=== PATIENT | female | born 1950 | race Caucasian/White ===

== ENCOUNTER 2017-04-24 05:41 | Inpatient (IN) | payer MEDICARE, OTHER ==
[2017-04-24] MEDS ORDERED: ceFAZolin SODIUM 1 GM VIAL IV PRN (06:00)
[2017-04-24] MEDS ORDERED: MORPHINE SULFATE 15 MG TABLET.SA PO PRN (06:00)
[2017-04-24] MEDS: RINGER'S SOLUTION,LACTATED 1,000 ML IV PRN ×2 (07:28→07:30)
[2017-04-24] MEDS ORDERED: RINGER'S SOLUTION,LACTATED 1,000 ML IV ONE ×2 (08:25→09:21)
[2017-04-24] MEDS: ROPIVACAINE HCL/PF 100 MG, EPINEPHrine 0.2 MG, KETOROLAC TROMETHAMINE 30 MG in NORMAL S... IJ PRN ×2 (08:31→09:20)
[2017-04-24] MEDS: TRANEXAMIC ACID 1,000 MG in NORMAL SALINE 100 ML IV PRN ×2 (08:32→09:22)
[2017-04-24] MEDS ORDERED: MAGNESIUM HYDROXIDE 30 ML UDC PO PRN (09:46)
[2017-04-24] MEDS ORDERED: ZOLPIDEM TARTRATE 5 MG TABLET PO PRN (09:46)
[2017-04-24] MEDS ORDERED: ACETAMINOPHEN 500 MG TABLET PO PRN (09:46)
[2017-04-24] MEDS ORDERED: HYDROmorphone HCL 1 MG/ML DISP.SYRIN IV PRN (09:46)
[2017-04-24] MEDS ORDERED: diphenhydrAMINE HCL 50 MG/ML VIAL IV PRN (09:46)
[2017-04-24] MEDS ORDERED: MAG HYDROX/ALUMINUM HYD/SIMETH 30 ML UDC PO PRN (09:46)
[2017-04-24] MEDS ORDERED: ONDANSETRON HCL/PF 2 MG/ML VIAL IV PRN (09:46)
[2017-04-24] MEDS ORDERED: PROMETHAZINE HCL 5 MG in DEXTROSE 5 % IN WATER 50 ML IV PRN ×2 (09:46)
--- NOTE | 2017-04-24 09:50 | OR ---
Operative Report - Dictated Report Narrative: Date: 04/24/2017 Preoperative diagnosis: Left Knee degenerative joint disease. Postoperative diagnosis: Left Knee degenerative joint disease. Procedure: Left Total knee arthroplasty. Surgeon: Phi Mcdonough M.D. [place] Welter: Flavio Munson PA-C Anesthesia: Spinal with regional block and local periarticular joint injection. Complications: None Specimens: Bone for disposal. Estimated blood loss: Minimal. Tourniquet time: 84 Minutes at 350 millimeters of mercury. Retained implants: Depuy Attune size 5 narrow left lugged cemented posterior stabilized femoral component. Size 4 fixed-bearing cemented tibial platform. 5 by 7 millimeter posterior stabilized cross-linked tibial insert. 38 millimeter medialized patella button. Indications: Mrs. Robison is a 67-year-old female who had advanced left knee arthrosis. This patient was followed in my clinic for period of time with significant complaints of left knee pain consistent with arthritic changes. She had failed conservative measures including, but not limited to, activity modification, passage of time, medications, and other conservative measures. Patient wished to proceed with surgical treatment. The risks, benefits, and alternatives were discussed in clinic. The risks of , blood clots, bleeding, infection, nerve/tendon blood vessel/ injury, malposition of components, intraoperative fracture, postoperative limited range of motion, persistent pain, failure of components, and need for additional procedures. Patient wished to proceed consent was obtained after answering all questions. Procedure: After marking the correct extremity on the floor, the patient was taken to the operating room. A timeout was performed. IV antibiotics consisting of Ancef were administered prior to the procedure. A regional followed by spinal anesthetic was induced by anesthesia, per my request, on the operative table with all bony prominences well-padded. Lewis catheter was placed, and a bump was placed under the operative side buttock. SCDs and WILMER hose were utilized on the nonoperative leg. A well-padded tourniquet was applied to the operative thigh. The operative leg was then pre-scrubbed with alcohol prepped, and draped in a standard sterile fashion. After exsanguinating the extremity with an Esmarch bandage, the tourniquet was inflated. After marking out the anterior knee for standard incision centered over the patella, the skin was incised and dissected down to the joint retinaculum. The joint retinaculum was marked out as well as the horizontal axis of the patella, and a standard medial parapatellar arthrotomy was then made. The most proximal aspect of the quadriceps tendon and the patella tendon insertion were protected from release. A partial synovectomy was performed as well as a resection of the infrapatellar fat pad. The distal femoral fat pad proximal to the trochlea was also resected using cautery. The soft tissues were elevated off the medial aspect of the proximal tibia using a Ferguson elevator ensuring that we did not transect the medial collateral ligament. Upon initial evaluation range of motion was approximately 0 degrees to 90 degrees of flexion. There were signs of advanced arthrosis in the medial, lateral, and patellofemoral joint spaces. There were large marginal osteophytes which were removed with a rongeur. The knee was hyperflexed and the patella was tucked laterally. Protecting the surrounding soft tissues with Homans, an entry drill was placed down the femoral canal using Whitesides line for guidance into the entry point. The intramedullary femoral alignment usha was utilized in order to cut the distal femur in 5 degrees of valgus resecting 10 millimeters of bone. Next the distal femur was sized to a size 5. A posterior referencing guide was utilized to place the distal femoral cutting block in 3 degrees of external rotation. This was pinned into place. The rotation was confirmed both visually and based on anatomic landmarks. The 4 in 1 cutting jig of the appropriate size was utilized in order to make all bony cuts. The angle wing was used to ensure no notching. Retractors were utilized in order to protect surrounding soft tissues. This cut did not result in any excessive notching. We then cut the box centered over the distal femur. This allowed for resection of the anterior and posterior cruciate ligaments. I then turned my attention to the preparation of the tibia. Using an extra medullary tibial alignment usha, 4 millimeters of bone was resected off the medial articular surface. This was made perpendicular to the mechanical axis of the joint with the alignment usha centered over the ankle mortise. The alignment usha was checked and was noted to be parallel to the mechanical axis, centered over the medial one third of the tibial tubercle, paralleling the anterior surface of the tibia. We then turned our attention to the remaining meniscus and soft tissues. These were removed while protecting the surrounding ligaments and soft tissues. The marginal osteophytes off the anterior, posterior, medial, lateral aspects of the femur and tibia were removed. The tibia was sized out to a size 4. Next the tibia was drilled and punched in an externally rotated position. Next the trial femur and a series of tibial inserts were utilized in order to allow for full extension and maximal flexion. It was found that a 7 millimeter insert gave the best range of motion and stability at multiple flexion points as well as at full extension there was less than 2 mm of gapping both medially and laterally. There is minimal anterior translation with the knee at 90 degrees of flexion and no signs of being able to dislocate the knee. The patella was then prepared. The initial thickness was 22 millimeters. This was reamed down to 12 millimeters parallel to the anterior surface of the patella. It was sized out to a size 38 medialized patella button. This was then drilled and trialed. Without any medial restraint the patella tracked appropriately and did not sublux or dislocate. At this point, it was felt these were the appropriate sized implants, and all trials were removed. The standard periarticular joint injection consisting of ropivacaine, Toradol, and epinephrine were injected into the periarticular joint tissues. The bony surfaces were thoroughly irrigated with a pulsatile- suction saline irrigation device. A bone plug from the prior resected anterior chamfer cut was placed into the drill hole at the distal femur. The bony surfaces were then dried in preparation for placement of the implants. The cement was vacuum mixed per the airline radio operator's instructions. The cement was placed on the dry bony surfaces and posterior aspect of the implants. The implants were impacted into place, removing all extruded cement. At this point anesthesia administered tranexamic acid per protocol intravenously. The knee was placed in extension with axial loading with the trial insert while the cement cured. Once the cement cured, all remaining extruded cement was removed. The knee was placed through a range of motion with the trial insert to ensure appropriate range of motion and stability. Final range of motion was approximately 0 to 110 degrees limited by her soft tissues. The knee was again thoroughly irrigated with pulsatile saline lavage. The final polyethylene insert was then impacted into place ensuring no retained soft tissues. The remaining periarticular joint injection was injected. A medium Hemovac drain was placed exiting superior laterally. The knee was then placed over a triangle and the arthrotomy was closed with interrupted #1 Vicryl after thoroughly irrigating the joint. The deep and subcutaneous tissues were closed with interrupted 0 and 3-0 Vicryl respectively. Skin was closed with a running subcutaneous 3-0 Monocryl and Prineo Dermabond dressing. 4 x 4's, Sof-Rol, and a full leg Gaurav wrap were applied. All sponge, needle, blade, and instrument counts were correct prior to closing the wounds. Postoperative condition: The patient was awoken and transferred to the postanesthesia care unit in stable condition. Plan is to be admitted to the inpatient medical/surgical floor postoperatively for 24 hours of IV antibiotics , physical therapy, occupational therapy, and medical comanagement. Patient will be weightbearing as tolerated with range of motion as tolerated. DVT prophylaxis will be with SCDs, WILMER hose, and pharmacological anticoagulation. Anticipated hospital stay is approximately 2-4 days.
--- NOTE | 2017-04-24 10:34 | OR ---
Anesthesia Procedure Note - Anesthesia Procedure Note Narrative: Vital Signs - Last Taken Temp 36.9 C 04/24/17 10:20 Pulse 68 04/24/17 10:20 Resp 16 04/24/17 10:20 BP 95/64 04/24/17 10:20 Pulse Ox 96 04/24/17 10:20 O2 Oxygen Delivery Method Room Air 04/24/17 10:30 ANESTHESIA PROCEDURE NOTE Date of procedure: 04/24/2017. Time of procedure: . Performed by: Chaim Hemphill CRNA Stereo Compiler: Sulema Poole RN . Preprocedure diagnosis: Postoperative analgesia for left total knee arthroplasty. Post procedure diagnosis: Same. Procedure: Left femoral nerve block Indications: Postoperative analgesia. Findings: Patient brought to operating room number form placed in supine position. Patient was sedated to affect. Patient's left femoral/inguinal area was prepped with ChloraPrep. Ultrasound guidance was utilized to identify left femoral artery and nerve. The nerve stimulator a long with a 22-gauge 2 inch Stimuplex regional block needle was used as well as ultrasound to secure proper needle placement. A total of 30 mL of 0.25% Marcaine with epinephrine 1 200, 000 was injected around the femoral nerve. Images retained in radiology database. Regional block needle was removed intact. Infiltration at the needle insertion site with 1% Xylocaine before block. EBL: Minimal. Fluids: N/A. Specimen: N/A. Post procedure condition: The patient tolerated the procedure well. No complications were noted. Thank you for this consultation Chaim Hemphill CRNA
[2017-04-24] MEDS: DEXTROSE 5%-LACTATED RINGERS 1,000 ML IV PRN ×2 (10:59→20:18)
[2017-04-24] MEDS: KETOROLAC TROMETHAMINE 15 MG/ML VIAL IV SCH ×3 (11:04→23:28)
[2017-04-24] MEDS: ceFAZolin SODIUM 1 GM in DEXTROSE 5 % IN WATER 100 ML IV SCH ×6 (11:04→23:32)
[2017-04-24] MEDS: MORPHINE SULFATE 15 MG TABLET.SA PO SCH (21:34)
[2017-04-24] MEDS: CARVEDILOL 6.25 MG TABLET PO SCH (21:34)
[2017-04-24] MEDS: SENNOSIDES/DOCUSATE SODIUM 1 TAB TABLET PO SCH (21:35)
[2017-04-25] MEDS: KETOROLAC TROMETHAMINE 15 MG/ML VIAL IV SCH ×4 (05:10→22:58)
[2017-04-25 05:55] LABS: Hematocrit 33.9 % (37.0-47.0); Mean Cell Volume 90.4 fl (78-100); Mean Corpuscular Hemoglobin 29.3 pg (27-31); Mean Corpuscular Hgb Conc 32.4 g/dl (32-36); Mean Platelet Volume 9.1 fl (6.0-9.5); Platelet Count 267 K/mm3 (150-450); Red Blood Count 3.75 M/mm3 (4.2-5.4); Red Cell Distribution Width 14.4 % (11.5-14.0); White Blood Count 10.6 K/mm3 (4.0-10.5)
[2017-04-25 06:06] LABS: BUN/Creatinine Ratio 10.8 (9.0-21.6); Calcium * 8.3 mg/dL (7.9-10.9); Estimated Creat Clear 65.4
[2017-04-25] MEDS: oxyCODONE HCL/ACETAMINOPHEN 1 TAB TABLET PO PRN ×2 (07:31→16:15)
--- NOTE | 2017-04-25 07:53 | PN ---
Subjective - Date and Time Seen Date: 04/25/17 Time: 07:50 Subjective Narrative: Subjective: Reports no concerns. Was able to get up to the chair with therapy. Pain is well-controlled. Voiding without any complications. Tolerating by mouth intake. Denies any nausea or vomiting. Denies calf pain. Slept well. Physical exam: Alert and oriented to person, place and time Left lower Extremity: Palpable dorsalis pedis pulse. Sensation grossly intact to light touch. Dressings clean and dry. Able to flex and extend ankle and toes. No excessive drainage. Calf and thigh are soft and nontender. Assessment: Postop day 1 status post left total knee arthroplasty. Plan: Continue with physical and occupational therapy weightbearing as tolerated. Continue with anticoagulation. 24 hours postoperative prophylactic antibiotics. Pain control with goal to rely on oral medications. Continue bowel regimen. Will need 6 weeks with walker or assitive device to protect joint while ambulating during the recovery process. Discharge planning. Discontinue drain and Lewis catheter. Repeat labs in a.m. Objective - Vitals Vitals: Last Vital Signs Temp 37.3 C 04/25/17 06:30 Pulse 83 04/25/17 06:30 Resp 18 04/25/17 06:30 BP 158/76 04/25/17 06:30 Pulse Ox 96 04/25/17 06:30 - Abnormal Lab Findings Abnormal Lab Findings: Abnormal Lab Results 04/25/17 04/25/17 Range/Units 05:50 05:50 WBC 10.6 H (4.0-10.5) K/mm3 RBC 3.75 L (4.2-5.4) M/mm3 Hgb 11.0 L (12.5-16.0) gm/dL Hct 33.9 L (37.0-47.0) % RDW 14.4 H (11.5-14.0) % Chloride 107 H (97-106) mmol/L Cauti Physician Documentation - Urinary Catheter Management Urethral (Lewis) Date of Insertion: 04/24/17 Time of Insertion: 08:05 Date of Removal: 04/25/17 Time of Removal: 07:42 Assessment/Plan - Problems/Diagnosis (1) Status post total left knee replacement Problem: Acute (2) Acute blood loss anemia Problem: Acute (3) Hypertension Problem: Chronic (4) Hyperlipidemia Problem: Chronic (5) Obesity Problem: Chronic
[2017-04-25] MEDS: MORPHINE SULFATE 15 MG TABLET.SA PO SCH ×2 (09:37→20:27)
[2017-04-25] MEDS: CARVEDILOL 6.25 MG TABLET PO SCH ×2 (09:37→20:28)
[2017-04-25] MEDS: ENOXAPARIN SODIUM 40 MG/0.4 ML SYRG SC SCH (10:00)
[2017-04-25] MEDS: SENNOSIDES/DOCUSATE SODIUM 1 TAB TABLET PO SCH (20:28)
[2017-04-26] MEDS: KETOROLAC TROMETHAMINE 15 MG/ML VIAL IV SCH (05:25)
[2017-04-26 05:47] LABS: Hematocrit 32.8 % (37.0-47.0); Hemoglobin 10.7 gm/dL (12.5-16.0); Mean Cell Volume 91.1 fl (78-100); Mean Corpuscular Hemoglobin 29.7 pg (27-31); Mean Corpuscular Hgb Conc 32.6 g/dl (32-36); Mean Platelet Volume 9.5 fl (6.0-9.5); Platelet Count 268 K/mm3 (150-450); Red Cell Distribution Width 14.4 % (11.5-14.0); White Blood Count 11.4 K/mm3 (4.0-10.5)
[2017-04-26 06:13] LABS: Anion Gap 11.4 mmol/L (6.8-13.8); BUN/Creatinine Ratio 15.1 (9.0-21.6); Calcium * 8.6 mg/dL (7.9-10.9); Carbon Dioxide 26.6 mmol/L (24-32.6); Estimated Creat Clear 66.3
[2017-04-26] MEDS: MORPHINE SULFATE 15 MG TABLET.SA PO SCH (08:50)
[2017-04-26] MEDS: CARVEDILOL 6.25 MG TABLET PO SCH (08:50)
[2017-04-26] MEDS: ENOXAPARIN SODIUM 40 MG/0.4 ML SYRG SC SCH (08:51)
[2017-04-26] MEDS ORDERED: OMEGA-3 FATTY ACIDS 1 CAP CAPSULE PO SCH (09:00)
--- NOTE | 2017-04-26 10:15 | DS ---
(1) Status post total left knee replacement Problem: Acute (2) Acute blood loss anemia Problem: Acute (3) Hypertension Problem: Chronic (4) Hyperlipidemia Problem: Chronic (5) Obesity Problem: Chronic Description of Stay: Mrs. Robison was admitted to the floor after undergoing left total knee arthroplasty. Tolerated this well. Was admitted to the floor postoperatively for 24 hours of IV antibiotics, pain control, medical comanagement, and occupational and physical therapy. OT and PT were consulted to assist with activities of daily living and ambulation. Was made weightbearing as tolerated with range of motion as tolerated. Pain was initially controlled with IV regimen. This was transitioned to oral once tolerating a by mouth intake. Was resumed on home diet and medications. Had a Lewis catheter inserted and the operating room which was discontinued on postoperative day 1. A drain was placed intraoperatively into the knee which was discontinued on postoperative day 1. Lovenox SCD and WILMER hose were utilized for DVT prophylaxis. Vital signs remained stable to the hospital course. Serial labs were obtained which showed a final hemoglobin of 10.7 grams. BMP was reviewed and was stable. Physical examination throughout the hospital course showed an extremity that had sensation that was intact to light touch, palpable pulses, a benign wound, motor intact to the toes, ankle, and knee. Knee range of motion was approximately 0 degrees to 60 degrees. Once an oral pain regimen was tolerated and physical therapy goals were met, it was felt that they were stable for discharge to home. Instructions: Continue with weightbearing as tolerated and range of motion as tolerated. As long as there is no drainage she is okay to shower and get the wound wet. Otherwise if there is any drainage she is instructed to Keep the wound clean and dry and cover with dry gauze and tape. Change every 2-3 days as needed. Continue with physical therapy. Resume home diet. Report any fever over 101.5 Fahrenheit, uncontrolled pain, increased drainage, foul odor of drainage, new or increased calf pain or shortness of breath, or any other significant complaints. A 325mg dialy aspirin will be started after finishing anticoagulation if not allergic. Continue with WILMER hose on the operative extremity until instructed otherwise. No driving until instructed otherwise. Follow up in approximately 10-14 days. Procedures Performed: see notes below List Procedures: Left total knee arthroplasty Discharge Disposition: Home self care Disposition: Home self-care Condition: Good Discharge Activity: Activity as tolerated, Weight bearing Discharge Diet: General/regular food Longterm Therapy: Physicial Therapy Referrals: Phi Mcdonough MD [Primary Care Provider] - Additional Patient Instructions (free text): PT outpatient at [facility] in [place], [place]. Fax orders to [phone]. Your therapy appointment is Monday at 11am. Follow-up in the office with Dr. Mcdonough on 05/09/17@9:45am. Prescriptions (Any new or edited meds): Enoxaparin Sodium [Lovenox] 40 mg SC Q24H #7 disp.syrin Morphine Sulfate [Ms Contin] 15 mg PO Q12H #20 tablet. Complete Home Medications List: Complete Home Medication List: Diclofenac Potassium 50 mg PO TID PRN 04/12/17 Docosahexanoic Acid/Epa [Fish Oil Concentrate Softgel] 1 each PO 3XW 04/12/17 Carvedilol [Coreg] 6.25 mg PO BID 04/20/17 Enoxaparin Sodium [Lovenox] 40 mg SC Q24H #7 disp.syrin 04/26/17 Morphine Sulfate [Ms Contin] 15 mg PO Q12H #20 tablet.sa 04/26/17 Sennosides/Docusate Sodium [Senokot-S] 2 tab PO HS tablet 04/26/17 Amb Orders for Discharge: PT Evaluation and Treatment Facility: [facility], Location: Rehabilitation Services
[2017-04-26 10:48] VITALS: BP 121/68
== END 2017-04-26 13:40 | disposition home or self-care (01) | DRG 470 ==
LOC: MS 05:41
PROVIDERS: ADMIT Orthopaedic Surgery; ATTEND Orthopaedic Surgery
PROC: 0SRD0J9 Replacement of Left Knee Joint with Synthetic Substitute, Cemented, Open Approach (ICD-10-PCS; principal; 2017-04-24 08:00)
DX: M17.12 Unilateral primary osteoarthritis, left knee (principal); D62 Acute posthemorrhagic anemia; I10 Essential (primary) hypertension; E78.4 Other hyperlipidemia

== ENCOUNTER 2020-03-09 08:12 | Inpatient (IN) ==
[~2020-03-09 08:12] MED LIST: MORPHINE SULFATE 15 MG TABLET.SA PO PRN; ROPIVACAINE HCL/PF 100 MG, EPINEPHrine 0.2 MG, KETOROLAC TROMETHAMINE 30 MG in NORMAL S... IJ PRN; TRANEXAMIC ACID 1,000 MG in NORMAL SALINE 100 ML IV PRN; ceFAZolin SODIUM 1 GM VIAL IV PRN
[2020-03-09] MEDS: RINGER'S SOLUTION,LACTATED 1,000 ML IV PRN ×2 (08:53→11:10)
--- NOTE | 2020-03-09 09:25 | ANES ---
Anesthesia Pre Procedure Eval Vitals/Labs: Last Vital Signs Temp 37.4 C 03/09/20 08:31 Pulse 63 03/09/20 08:31 Resp 18 03/09/20 08:31 BP 150/96 H 03/09/20 08:31 Pulse Ox 97 03/09/20 08:31 HOME MEDICATIONS aspirin-caffeine 500 mg-32.5 mg tablet 2 tab PO TID PRN tab 11/05/18 [Last Taken 11/28/18] Allergies/Adverse Reactions: Allergies Allergy/AdvReac Type Severity Reaction Status Date / Time No Known Allergies Allergy Verified 03/09/20 08:21 - Planned Procedure Planned Procedure: Right Arthroplasty Total Knee Medication List Reviewed:: Yes Allergies Verified: Yes Medical History (Last Reviewed 03/09/20 @ 09:15 by Duncan Armenta CRNA) Arthritis Onset Date: Unknown bilat knees DJD (degenerative joint disease) Onset Date: Unknown Hyperlipidemia Onset Date: Unknown Hypertension Onset Date: Unknown Knee pain, left Onset Date: Unknown Knee pain, right Onset Date: Unknown Malignant neoplasm of uterine adnexa Onset Date: Unknown Surgical History (Last Reviewed 03/09/20 @ 09:15 by Duncan Armenta CRNA) History of abdominal hysterectomy Onset Date: 1979 uterine ca History of colonoscopy Onset Date: 2015 benign History of total left knee replacement Onset Date: 04/24/17 Left total knee arthroplasty per Dr Mcdonough H/O excision of mass Onset Date: ~12/05/18 Excision of anterolateral ankle mass, 8 cm: left ankle Dr. Mcdonough Family History (Last Reviewed 03/09/20 @ 09:16 by Duncan Armenta CRNA) Mother No problems noted. Father Cancer Bladder cancer bladder removed Sister Patient's sister is Sister Alive and well Sister , age 64 No problems noted. Other Patient's mother is - Family Anesthesia History Family History:: no untoward family reactions to anesthesia, no familial bleeding tendencies, no family history of clotting disorders, no family history of premature - Airway/Neck/Teeth Within Normal Limits:: Yes Teeth Condition: intact Neck Exam: full range of motion Mallampatti Score: 3 Thyromental (T-M) distance: > 6 cm Mandibulo Hyoid distance: > 3 cm - Respiratory Respiratory Physical: lungs clear Smoking Status: Never smoker Sleep Apnea currently treated: No Sleep Apnea by current assessment: Yes - Anatomy lends itself to this - Cardiovascular Cardiac History: hypertension Tolerate Activity: Fair Heart Sounds: S1 & S2, Regular - Gastrointestinal NPO since: 2400 - Anesthesia Assessment and Plan ASA Class: PS, III Anesthesia Type Plan: Block - Adductor canal block for post op pain relief, Spinal
[2020-03-09] MEDS ORDERED: ceFAZolin SODIUM 1 GM VIAL ONE (09:26)
[2020-03-09] MEDS ORDERED: ISOPROPYL ALCOHOL 480 APPL BTL MC ONE (09:26)
[2020-03-09] MEDS ORDERED: MIDAZOLAM HCL/PF 5 MG/ML VIAL ONE (09:28)
[2020-03-09] MEDS ORDERED: PROPOFOL VIAL IV ONE (09:28)
[2020-03-09] MEDS ORDERED: BUPIVACAINE HCL/EPINEPHRINE/PF 30 ML VIAL IJ ONE (09:33)
[2020-03-09] MEDS ORDERED: BUPIVACAINE HCL/PF 10 ML VIAL ONE (10:21)
[2020-03-09] MEDS ORDERED: ONDANSETRON HCL/PF 2 MG/ML VIAL ONE (12:00)
[2020-03-09] MEDS ORDERED: fentaNYL CITRATE/PF 50 MCG/ML AMPUL ONE (12:00)
[2020-03-09] MEDS ORDERED: KETOROLAC TROMETHAMINE 30 MG/ML VIAL ONE (12:01)
[2020-03-09] MEDS ORDERED: MAGNESIUM HYDROXIDE 30 ML UDC PO PRN (12:23)
[2020-03-09] MEDS ORDERED: oxyCODONE HCL/ACETAMINOPHEN 1 TAB TABLET PO PRN (12:23)
[2020-03-09] MEDS ORDERED: ONDANSETRON HCL/PF 2 MG/ML VIAL IV PRN (12:23)
[2020-03-09] MEDS ORDERED: DEXTROSE 5%-LACTATED RINGERS 1,000 ML IV PRN (12:23)
[2020-03-09] MEDS ORDERED: MORPHINE SULFATE 2 MG/ML DISP.SYRIN IV PRN (12:23)
[2020-03-09] MEDS ORDERED: ZOLPIDEM TARTRATE 5 MG TABLET PO PRN (12:23)
[2020-03-09] MEDS ORDERED: diphenhydrAMINE HCL 50 MG/ML VIAL IV PRN (12:23)
[2020-03-09] MEDS ORDERED: MAG HYDROX/ALUMINUM HYD/SIMETH 30 ML UDC PO PRN (12:23)
--- NOTE | 2020-03-09 12:23 | OR ---
Operative Report - Dictated Report Narrative: Date: 03/09/2020 Preoperative diagnosis: Right knee degenerative joint disease. Postoperative diagnosis: Right knee degenerative joint disease. Procedure: Right total knee arthroplasty. Surgeon: Phi Mcdonough M.D. Aging Department Supervisor: Flavio Munson PA-C (provided and essential set of skilled, educated hands that assisted with transfer, positioning, prepping, draping, manipulation, retraction, placement of jigs, injection, insertion of implants, irrigation, closure wounds, and dressings all of which could not be performed by the available surgical crew) Anesthesia: General with regional block and local periarticular joint injection. Complications: None Specimens: Bone. Estimated blood loss: Minimal. Tourniquet time: 98 Minutes at 350 millimeters of mercury. Retained implants: Depuy Attune size 5 narrow right lugged cemented posterior stabilized femoral component. Size 4 revision fixed-bearing cemented tibial platform. 5 by 7 millimeter posterior stabilized cross-linked tibial insert. 38 millimeter medialized patella button. Indications: Mrs. Robison is a 69-year-old female who has had longstanding right knee pain and arthrosis. This patient was followed in my clinic for period of time with significant complaints of right knee pain consistent with ar thritic changes. She had failed conservative measures including, but not limited to, activity modification, passage of time, medications, and other conservative measures. Patient wished to proceed with surgical treatment. The risks, benefits, and alternatives were discussed in clinic. The risks of , blood clots, bleeding, infection, nerve/tendon blood vessel/ injury, malposition of components, intraoperative fracture, postoperative limited range of motion, persistent pain, failure of components, and need for additional procedures. Patient wished to proceed consent was obtained after answering all questions. Procedure: After marking the correct extremity on the floor, the patient was taken to the operating room. A timeout was performed. IV antibiotics consisting of Ancef were administered prior to the procedure. A regional followed by general anesthetic was induced by anesthesia, per my request, on the operative table with all bony prominences well-padded. Lewis catheter was placed, and a bump was placed under the operative side buttock. SCDs and WILMER hose were utilized on the nonoperative leg. A well-padded tourniquet was applied to the operative thigh. The operative leg was then pre-scrubbed with alcohol, prepped, and draped in a standard sterile fashion. After exsanguinating the extremity with an Esmarch bandage, the tourniquet was inflated. After marking out the anterior knee for standard incision centered over the patella, the skin was incised and dissected down to the joint retinaculum. The joint retinaculum was marked out as well as the horizontal axis of the patella, and a standard medial parapatellar arthrotomy was then made. The most proximal aspect of the quadriceps tendon and the patella tendon insertion were protected from release. A partial synovectomy was performed as well as a resection of the infrapatellar fat pad. The distal femoral fat pad proximal to the trochlea was also resected using cautery. The soft tissues were elevated off the medial aspect of the proximal tibia using a Ferguson elevator ensuring that we did not transect the medial collateral ligament. Upon initial evaluation range of motion was approximately 10 degrees to 60 degrees of flexion. There were signs of advanced arthrosis in the medial, lateral, and patellofemoral joint spaces. There were large marginal osteophytes which were removed with a rongeur. The knee was hyperflexed and the patella was tucked laterally. Protecting the surrounding soft tissues with Homans, an entry drill was placed down the femoral canal using Whitesides line for guidance into the entry point. The intramedullary femoral alignment usha was utilized in order to cut the distal femur in 5 degrees of valgus resecting 10 millimeters of bone. Next the distal femur was sized to a size 5. A posterior referencing guide was utilized to place the distal femoral cutting block in 3 degrees of external rotation. This was pinned into place. The rotation was confirmed both visually and based on anatomic landmarks. The 4 in 1 cutting jig of the appropriate size was utilized in order to make all bony cuts. The zev wing was used to ensure no notching. Retractors were utilized in order to protect surrounding soft tissues. This cut did not result in any excessive notching. We then cut the box centered over the distal femur. This allowed for resection of the anterior and posterior cruciate ligaments. I then turned my attention to the preparation of the tibia. Using an extra medullary tibial alignment uhsa, 4 millimeters of bone was resected off the medial articular surface. This was made perpendicular to the mechanical axis of the joint with the alignment usha centered over the ankle mortise. The alignment usha was checked and was noted to be parallel to the mechanical axis, centered over the medial one third of the tibial tubercle, paralleling the anterior surface of the tibia. We then turned our attention to the remaining meniscus and soft tissues. These were removed while protecting the surrounding ligaments and soft tissues. The marginal osteophytes off the anterior, posterior, medial, lateral aspects of the femur and tibia were removed. The tibia was sized out to a size 4. Next the tibia was drilled and punched in an externally rotated position. Next the trial femur and a series of tibial inserts were utilized in order to allow for full extension and maximal flexion. It was found that a 7 millimeter insert gave the best range of motion and stability at multiple flexion points as well as at full extension there was less than 2 mm of gapping both medially and laterally. There is minimal anterior translation with the knee at 90 degrees of flexion and no signs of being able to dislocate the knee. The patella was then prepared. The initial thickness was 24 millimeters. This was reamed down to 14 millimeters parallel to the anterior surface of the patella. It was sized out to a size 38 medialized patella button. This was then drilled and trialed. Without any medial restraint the patella tracked appropriately and did not sublux or dislocate. At this point, it was felt these were the appropriate sized implants, and all trials were removed. The standard periarticular joint injection consisting of ropivacaine, Toradol, and epinephrine were injected into the periarticular joint tissues. The bony surfaces were thoroughly irrigated with a pulsatile-suction saline irrigation device. A bone plug from the prior resected anterior chamfer cut was placed into the drill hole at the distal femur. The bony surfaces were then dried in preparation for placement of the implants. The cement was vacuum mixed per the rental coordinator's instructions. The cement was placed on the dry bony surfaces and posterior aspect of the implants. The implants were impacted into place, removing all extruded cement. At this point anesthesia administered tranexamic acid per protocol intravenously. The knee was placed in extension with axial loading with the trial insert while the cement cured. Once the cement cured, all remaining extruded cement was removed. The knee was placed through a range of motion with the trial insert to ensure appropriate range of motion and stability. Final range of motion was approximately 0 to 110 degrees. The knee was again thoroughly irrigated with pulsatile saline lavage. The final polyethylene insert was then impacted into place ensuring no retained soft tissues. The remaining periarticular joint injection was injected. A medium Hemovac drain was placed exiting superior laterally. The knee was then placed over a triangle and the arthrotomy was closed with interrupted #1 Vicryl after thoroughly irrigating the joint. The deep and subcutaneous tissues were closed with interrupted 0 and 3-0 Vicryl respectively. Skin was closed with a running subcutaneous 3-0 Monocryl and bry. Xeroform, 4 x 4's, Sof-Rol, and a full leg Gaurav wrap were applied. All sponge, needle, blade, and instrument counts were correct prior to closing the wounds. Postoperative condition: The patient was awoken and transferred to the postanesthesia care unit in stable condition. Plan is to be admitted to the inpatient medical/surgical floor postoperatively for 24 hours of IV antibiotics, physical therapy, occupational therapy, and medical comanagement. Patient will be weightbearing as tolerated with range of motion as tolerated. DVT prophylaxis will be with SCDs, WILMER hose, and pharmacological anticoagulation. Anticipated hospital stay is approximately 1-3 days.
--- NOTE | 2020-03-09 12:38 | ANES ---
Anesthesia Procedure Note Procedure Note: ANESTHESIA PROCEDURE NOTE Date of Procedure: 03/09/2020 Time of procedure: 10 AM. Performed by: GABRIEL Davey CRNA, MSN Dairy Bacteriologist: Susie Felix RN. Preprocedure diagnosis: Post right total knee arthroplasty pain. Post procedure diagnosis: Same. Procedure: Right adductor Canal Block. Indications: Post right total knee arthroplasty pain relief. Findings: See below. Details of the procedure: The patient was brought to OR #2 and placed in supine position. The patient's right femoral area to the knee was prepped with chlorhexidine and using ultrasound guidance the right femoral artery and nerve was identified and then followed to the level of the adductor canal. Lidocaine 1% was infiltrated to the skin of the intended injection site. Under ultrasound guidance the saphenous nerve was approached with visualization of a 4 inch shielded block needle. Once saphenous nerve was identified with proximity to the needle tip, the saphenous nerve was surrounded with 30 mL bupivacaine 0.5% with 1-200,000 epinephrine. Please see radiology/ultrasound report for details and retained images of the procedure. EBL: 0 Fluids: N/A. Specimen: N/A. Post procedure condition: The patient tolerated the procedure well. No complications were noted. Thank you for this consultation. Duncan Armenta CRNA, ARNP, MSN
--- NOTE | 2020-03-09 12:39 | ANES ---
Post Anesthesia Discharge - Transfer of Care Transfer of Care handoff given to nurse: Yes - Discharge from PACU Discharge from PACU when meets criteria: Yes - Comfortable.
--- NOTE | 2020-03-09 13:13 | ANES ---
Post Anesthesia Assessment - Vital Signs Vitals: Last Vital Signs Temp 36.4 C 03/09/20 13:05 Pulse 68 03/09/20 13:05 Resp 16 03/09/20 13:05 BP 195/101 H 03/09/20 13:05 Pulse Ox 96 03/09/20 13:05 Airway Patency: Normal - Mental Status Level Of Consciousness: Awake, Alert, Appropriate - Pain Level Pain Score: 0 - N/V Assessment Nausea/Vomiting Presence: None Dehydration:: No
[2020-03-09] MEDS: KETOROLAC TROMETHAMINE 15 MG/ML VIAL IV SCH ×2 (13:49→19:00)
[2020-03-09] MEDS: CARVEDILOL 6.25 MG TABLET PO SCH ×2 (13:50→20:22)
[2020-03-09] MEDS: ceFAZolin SODIUM 1 GM in DEXTROSE 5 % IN WATER 100 ML IV SCH ×4 (13:50→20:19)
[2020-03-09] MEDS: ACETAMINOPHEN 500 MG TABLET PO PRN (17:34)
[2020-03-09] MEDS: SENNOSIDES/DOCUSATE SODIUM 1 TAB TABLET PO SCH (20:19)
[2020-03-09] MEDS: MORPHINE SULFATE 15 MG TABLET.SA PO SCH (20:22)
[2020-03-10] MEDS: ceFAZolin SODIUM 1 GM in DEXTROSE 5 % IN WATER 100 ML IV SCH ×2 (01:48)
[2020-03-10] MEDS: KETOROLAC TROMETHAMINE 15 MG/ML VIAL IV SCH ×4 (01:49→20:07)
[2020-03-10 06:32] LABS: Hematocrit 37.1 % (37.0-47.0); Hemoglobin 11.4 gm/dL (12.5-16.0); Mean Cell Volume 93.5 fl (78-100); Mean Corpuscular Hemoglobin 28.7 pg (27-31); Mean Corpuscular Hgb Conc 30.7 g/dl (32-36); Mean Platelet Volume 9.4 fl (8-12.5); Platelet Count 249 K/mm3 (150-450); Red Blood Count 3.97 M/mm3 (4.2-5.4); Red Cell Distribution Width 14.2 % (11.5-14.0); White Blood Count 9.8 K/mm3 (4.0-10.5)
[2020-03-10 06:38] LABS: Anion Gap 9.3 mmol/L (6.8-13.8); BUN/Creatinine Ratio 11.9 (9.0-21.6); Calcium * 8.4 mg/dL (7.9-10.9); Carbon Dioxide 29.5 mmol/L (24-32.6); Estimated Creat Clear 57.5; Potassium 3.8 mmol/L (3.4-4.6)
[2020-03-10] MEDS: OMEGA-3 FATTY ACIDS 1 CAP CAPSULE PO SCH (08:17)
[2020-03-10] MEDS: CARVEDILOL 6.25 MG TABLET PO SCH ×2 (08:18→20:18)
[2020-03-10] MEDS: MORPHINE SULFATE 15 MG TABLET.SA PO SCH ×2 (08:20→20:18)
[2020-03-10] MEDS: ENOXAPARIN SODIUM 40 MG/0.4 ML SYRG SC SCH (10:28)
--- NOTE | 2020-03-10 16:27 | PN ---
Subjective - Date and Time Seen Date: 03/10/20 Time: 07:45 Subjective Narrative: Subjective: Reports discomfort and difficulty walking. Was able to take a few steps in the room with therapy. Pain tolerable. Voiding without any complications. Tolerating by mouth intake. Denies any nausea or vomiting. Denies calf pain. Slept well. Physical exam: Alert and oriented to person, place and time Right lower extremity: Palpable dorsalis pedis pulse. Sensation grossly intact to light touch. Dressings clean and dry. Able to flex and extend ankle and toes. No excessive drainage. Calf and thigh are soft and nontender. Assessment: Postop day 1 status post right total knee arthroplasty. Plan: Due to the need for pain control, post-operative limited mobility, protection of the surgical site and joint, monitoring of the wound, and the management of chronic medical conditions, she requires continued inpatient care. Continue with physical and occupational therapy weightbearing as tolerated. Continue with anticoagulation. 24 hours postoperative prophylactic antibiotics. Pain control with goal to rely on oral medications. Continue bowel regimen. Will need 6 weeks with walker or assitive device to protect joint while ambulating during the recovery process. Discharge planning. Discontinue drain and Lewis catheter. She is asymptomatic as regards to her postoperative acute blood loss anemia and thus this will be monitored clinically. Objective - Vitals Vitals: Last Vital Signs Temp 36.5 C 03/10/20 14:27 Pulse 72 03/10/20 14:27 Resp 18 03/10/20 14:27 BP 146/62 03/10/20 14:27 Pulse Ox 95 03/10/20 14:27 - Abnormal Lab Findings Abnormal Lab Findings: Abnormal Lab Results 03/10/20 03/10/20 Range/Units 06:26 06:26 RBC 3.97 L (4.2-5.4) M/mm3 Hgb 11.4 L (12.5-16.0) gm/dL MCHC 30.7 L (32-36) g/dl RDW 14.2 H (11.5-14.0) % Random Glucose 116 H (70-110) mg/dL Cauti Physician Documentation - Urinary Catheter Management Urethral (Lewis) Date of Insertion: 03/09/20 Time of Insertion: 10:15 Date of Removal: 03/10/20 Time of Removal: 04:45 Assessment/Plan - Problems/Diagnosis (1) Status post total right knee replacement Problem: Acute (2) Acute blood loss anemia Problem: Acute (3) Hyperlipidemia Problem: Chronic (4) Hypertension Problem: Chronic (5) Obesity Problem: Chronic Qualifiers: Obesity type: due to excess calories Body mass index: BMI 40.0-44.9
[2020-03-10] MEDS: ACETAMINOPHEN 500 MG TABLET PO PRN (20:18)
[2020-03-10] MEDS: SENNOSIDES/DOCUSATE SODIUM 1 TAB TABLET PO SCH (20:18)
[2020-03-11] MEDS: KETOROLAC TROMETHAMINE 15 MG/ML VIAL IV SCH ×2 (03:21→07:06)
[2020-03-11] MEDS: MORPHINE SULFATE 15 MG TABLET.SA PO SCH (08:41)
[2020-03-11] MEDS: OMEGA-3 FATTY ACIDS 1 CAP CAPSULE PO SCH (08:41)
[2020-03-11] MEDS: CARVEDILOL 6.25 MG TABLET PO SCH (08:42)
--- NOTE | 2020-03-11 09:48 | DS ---
(1) Status post total right knee replacement Problem: Acute (2) Acute blood loss anemia Problem: Acute (3) Hyperlipidemia Problem: Chronic (4) Hypertension Problem: Chronic (5) Obesity Problem: Chronic Qualifiers: Obesity type: due to excess calories Body mass index: BMI 40.0-44.9 Date of Discharge:: 03/11/20 Hospital Course: Mrs. Robison was admitted to the floor after undergoing right total knee arthroplasty. Tolerated this well. Was admitted to the floor postoperatively for 24 hours of IV antibiotics, pain control, medical comanagement, and occupational and physical therapy. OT and PT were consulted to assist with activities of daily living and ambulation. Was made weightbearing as tolerated with range of motion as tolerated. Pain was initially controlled with IV regimen. This was transitioned to oral once tolerating a by mouth intake. Was resumed on home diet and medications. A Lewis catheter was inserted in the operating room which was discontinued by postoperative day 1. A drain was placed intraoperatively into the knee which was discontinued on postoperative day 1. Lovenox, SCDs, and WILMER hose were utilized for DVT prophylaxis. Vital signs remained stable to the hospital course. Labs were obtained which showed a final hemoglobin of 11.4 grams. Pre-op hemoglobin was 13.3. She was asymptomic and thus the acute blood loss anemia will be monitored and treated clinically. BMP was reviewed and was stable. Physical examination throughout the hospital course showed an extremity that had sensation that was intact to light touch, palpable pulses, a benign wound, motor intact to the toes, ankle, and knee. Knee range of motion was approximately 0 degrees to 45 degrees. Once an oral pain regimen was tolerated and physical therapy goals were met, it was felt that they were stable for discharge to home. Instructions: Continue with weightbearing as tolerated and range of motion as tolerated. Keep the wound dry. Do not bathe or soak the wound. Cover with dry gauze and tape. Change every 2-3 days as needed if there is any drainage. Cover wound while showering. Continue with physical therapy. Resume home diet. Report any fever over 101.5 Fahrenheit, uncontrolled pain, increased drainage, foul odor of drainage, new or increased calf pain or shortness of breath, or any other significant complaints. A 325mg daily aspirin will be started after finishing anticoagulation if not allergic. Continue with WILMER hose on the operative extremity until instructed otherwise. No driving until instructed otherwise. Follow up in approximately 2-3 weeks. Procedures Performed: see notes below List Procedures: Right total knee arthroplasty Results and Findings: Lab Pending Results 03/10/20 06:26: WBC 9.8, RBC 3.97 L, Hgb 11.4 L, Hct 37.1, MCV 93.5, MCH 28.7, MCHC 30.7 L, RDW 14.2 H, Plt Count 249, MPV 9.4 03/10/20 06:26: Sodium 141, Plasma Sodium 141, Potassium 3.8, Chloride 106, Carbon Dioxide 29.5, Anion Gap 9.3, BUN 10, Creatinine 0.84, Est GFR (Non-Af Amer) 72, BUN/Creatinine Ratio 11.9, Random Glucose 116 H, Calcium 8.4 Discharge Location: Home Disposition: Home self-care Condition: Good Discharge Activity: Activity as tolerated, Weight bearing Discharge Diet: General/regular food Additional Patient Instructions (free text): Physcial Therapy at [facility] in [place] on March 12 at 11:00am. Please fax PT order to [phone]. Follow up Dr [facility]cdonough[facility] appt. on MondayMarch 31 at 9:00am. Prescriptions (Any new or edited meds): Enoxaparin Sodium [Lovenox] 40 mg SC Q24H #7 disp.syrin Transmission Status: Pending to [facility] Morphine Sulfate [Ms Contin] 15 mg PO Q12H #10 tablet.sa Transmission Status: Received by [facility] oxyCODONE HCL/ACETAMINOPHEN [Percocet 5 MG/325 MG] 1 - 2 tab PO Q4H PRN #60 tab PRN Reason: Moderate Pain (Pain Scale 4-6) Transmission Status: Received by [facility] Sennosides/Docusate Sodium [Senokot-S] 2 tab PO HS #60 tab Transmission Status: Pending to [facility] Complete Home Medications List: Complete Home Medication List: aspirin-caffeine 500 mg-32.5 mg tablet 2 tab PO TID PRN tab 11/05/18 Carvedilol [Coreg] 6.25 mg PO BID 03/09/20 [place]-3/Dha/Epa/Fish Oil [Fish Oil [place]-3 EC 1,200 mg] 1 ea PO DAILY 03/09/20 Enoxaparin Sodium [Lovenox] 40 mg SC Q24H #7 disp.syrin 03/11/20 Morphine Sulfate [Ms Contin] 15 mg PO Q12H #10 tablet.sa 03/11/20 Sennosides/Docusate Sodium [Senokot-S] 2 tab PO HS #60 tab 03/11/20 oxyCODONE HCL/ACETAMINOPHEN [Percocet 5 MG/325 MG] 1 - 2 tab PO Q4H PRN #60 tab 03/11/20 Amb Orders for Discharge: PT Evaluation and Treatment* Facility: [facility], Location: Rehabilitation Services Forms: Patient Portal Registration
[2020-03-11] MEDS: ENOXAPARIN SODIUM 40 MG/0.4 ML SYRG SC SCH (11:24)
[2020-03-11 14:26] VITALS: BP 112/65
== END 2020-03-11 14:30 | disposition home or self-care (01) | DRG 470 ==
LOC: MS 08:12 → SUR 08:12
PROVIDERS: ADMIT Orthopaedic Surgery; ATTEND Orthopaedic Surgery
DX: E78.49 Other hyperlipidemia; M17.11 Unilateral primary osteoarthritis, right knee; Z68.41 Body mass index [BMI] 40.0-44.9, adult; D62 Acute posthemorrhagic anemia; E66.9 Obesity, unspecified; I10 Essential (primary) hypertension
CPT/HCPCS: 36415; 73560; 80048; 85027; 97110; 97116; 97161; 97165; 97530; 97535; J2405